=== PATIENT | female | born 1945 | race Caucasian/White ===

== ENCOUNTER 2021-04-11 12:28 | Emergency (ER) | payer OTHER ==
[~2021-04-11 12:28] MED LIST: MIRALAX 238GM238 GM PO; NORCO 5-325 TA1 EACH PO
[2021-04-11] MEDS ORDERED: ULTRAM50 MG PO (14:01)
== END 2021-04-11 14:45 | disposition home or self-care (01) ==
LOC: FER 12:28
DX: M79.651 Pain in right thigh (principal); I10 Essential (primary) hypertension; Z88.0 Allergy status to penicillin; Z88.1 Allergy status to other antibiotic agents
CPT/HCPCS: 73552; 93971

== ENCOUNTER 2021-10-14 13:34 | Inpatient (IN) | payer OTHER ==
[~2021-10-14] VITALS: Ht 147.3 cm; Wt 102.2 kg
[~2021-10-14 13:34] MED LIST changes: +ULTRAM50 MG PO
[2021-10-14 15:22] LABS: BUN/CREAT RATIO (CALC) 10.9 RATIO; CREATININE 0.64 mg/dL (0.51-0.95); POTASSIUM 3.3 mmol/L (3.5-5.1)
[2021-10-14 15:25] LABS: BASOPHIL 0.2 % (0-2); EOSINOPHIL 0.6 % (0-7); HCT 37.9 % (37.0-47.0); HGB 12.2 g/dl (12.5-16.0); LYMPHOCYTE 15.8 % (15-48); MCH 30.1 pg (25.0-31.0); MCHC 32.2 g/dL (32.0-36.0); MCV 93.6 fL (78.0-100.0); MONOCYTE 6.8 % (0-12); MPV 10.9 fL (6.0-9.5); NEUTROPHIL 75.1 % (41-80); NRBC 0; PLT 428 K/uL (150-400); RBC 4.05 M/uL (4.20-5.40); RDW 13.6 % (11.5-14.0); WBC 6.6 K/uL (4.0-10.5)
[2021-10-14 15:59] LABS: INFLUENZA A NAA NEGATIVE (NEGATIVE)
[2021-10-14 16:10] LABS: CORONAVIRUS 2019 SARS-COV-2 POSITIVE (NEGATIVE)
[2021-10-14 18:40] LABS: IRON % SATURATION 14.1 %SAT (20-50)
[2021-10-14 19:44] LABS: MAGNESIUM 2.3 mg/dL (1.8-2.4)
[2021-10-15 06:18] LABS: BASOPHIL 0.2 % (0-2); EOSINOPHIL 0 % (0-7); HCT 35.5 % (37.0-47.0); HGB 11.4 g/dl (12.5-16.0); LYMPHOCYTE 12.4 % (15-48); MCH 29.7 pg (25.0-31.0); MCHC 32.1 g/dL (32.0-36.0); MCV 92.4 fL (78.0-100.0); MONOCYTE 5.1 % (0-12); MPV 10.8 fL (6.0-9.5); NEUTROPHIL 81.6 % (41-80); NRBC 0; PLT 402 K/uL (150-400); RBC 3.84 M/uL (4.20-5.40); RDW 13.7 % (11.5-14.0); WBC 4.5 K/uL (4.0-10.5)
[2021-10-15 06:50] LABS: ALBUMIN 2.3 g/dL (3.4-5.0); BILIRUBIN - TOTAL 0.3 mg/dL (0.2-1.0); BUN/CREAT RATIO (CALC) 16.1 RATIO; CREATININE 0.56 mg/dL (0.51-0.95); GLOBULIN (CALCULATION) 4.7 g/dL; POTASSIUM 3.8 mmol/L (3.5-5.1)
[2021-10-15 11:36] LABS: BILIRUBIN NEGATIVE (NEGATIVE); BLOOD 1+ Ery/uL (NEGATIVE); CLARITY HAZY (CLEAR); COLOR YELLOW (YELLOW); GLUCOSE (U) NORMAL (NORMAL); LEUKOCYTES 1+ Leu/uL (NEGATIVE); NITRITE POSITIVE (NEGATIVE); PROTEIN NEGATIVE (NEGATIVE); UROBILINOGEN 0.2 mg/dL (0.2-1.0); pH 6.5 (5.0-9.0)
[2021-10-15 11:44] LABS: BACTERIA 4+; URINARY WBC TNTC
[2021-10-15] MEDS ORDERED: HCTZ12.5 MG PO (17:45)
--- NOTE | 2021-10-15 18:11 | NUR ---
10/15/21 Ms. Beatty lives at home with her son, Jayy Beatty. She has a rw and cane which she doesn't use. Ms. Beatty is insisting on going home. Dr. Niño agreed to the discharge if 02 could be arranged. A referral was made to [facility] for 3 L. - Report given to PAPO Sharma, RN.
--- NOTE | 2021-10-16 11:58 | NUR ---
10/16/21 Patient was not discharged as planned on 10/15. Discharge is planned today with an increase in 02 from 2 L to 3 L. AN updated order has been sent to [facility]
[2021-10-17 06:50] LABS: HCT 39.4 % (37.0-47.0); HGB 12.5 g/dl (12.5-16.0); MCH 29.8 pg (25.0-31.0); MCHC 31.7 g/dL (32.0-36.0); MPV 10.8 fL (6.0-9.5); RBC 4.19 M/uL (4.20-5.40); RDW 14.1 % (11.5-14.0)
[2021-10-17 07:30] LABS: ALBUMIN 2.5 g/dL (3.4-5.0); BILIRUBIN - TOTAL 0.3 mg/dL (0.2-1.0); CREATININE 0.68 mg/dL (0.51-0.95); GLOBULIN (CALCULATION) 4.6 g/dL; POTASSIUM 4.3 mmol/L (3.5-5.1); TOTAL PROTEIN 7.1 g/dL (6.4-8.2)
[2021-10-17] MEDS ORDERED: ATORVASTATIN CA10 MG PO (10:42)
[2021-10-17] MEDS ORDERED: SERTRALINE HCL100 MG PO (10:43)
[2021-10-17] MEDS ORDERED: TRAZODONE 100M100 MG PO (10:43)
[2021-10-17] MEDS ORDERED: LEVOTHYROXINE125 MCG PO (10:44)
[2021-10-17] MEDS ORDERED: DEXAMETHASONE 2M2 MG PO (11:17)
[2021-10-17] MEDS ORDERED: FOLIC ACID1 MG PO (11:17)
--- NOTE | 2021-10-17 12:02 | NUR ---
10/17/21 Ms. Beatty is discharginh home on 3 L of . A referral was made to [facility] per son, Jayy Beatty's choice. Report given to PAPO Oliveira RN.
== END 2021-10-17 13:49 | disposition home health service (06) | DRG 177 ==
LOC: FER 13:34 → FTCU 17:11
PROVIDERS: Nurse Practitioner; Nurse Practitioner Family; ADMIT Family Medicine
PROC: 8E0ZXY6 Isolation (ICD-10-PCS; principal; 2021-10-14)
PROC: XW033E5 Introduction of Remdesivir Anti-infective into Peripheral Vein, Percutaneous Approach, New Technology Group 5 (ICD-10-PCS; 2021-10-14)
DX: U07.1 COVID-19 (principal); J96.01 Acute respiratory failure with hypoxia; J12.82 Pneumonia due to coronavirus disease 2019; G93.1 Anoxic brain damage, not elsewhere classified; Z66 Do not resuscitate; D64.9 Anemia, unspecified; R94.31 Abnormal electrocardiogram [ECG] [EKG]; F41.9 Anxiety disorder, unspecified; F40.240 Claustrophobia; Z88.0 Allergy status to penicillin; Z88.8 Allergy status to other drugs, medicaments and biological substances; Z95.4 Presence of other heart-valve replacement; Z98.890 Other specified postprocedural states
CPT/HCPCS: 36415; 36600; 71045; 71275; 80048; 80053; 81001; 82607; 82803; 83540; 83550; 83735; 83880; 84484; 85025; 85379; 93005; 94640; 94762; 97162; 97166; 97530; 97530-GP; 97535; C9399; J0696; J1100; J1650; J2060; J7030; J7050; J8540; Q9967; U0002